=== PATIENT | female | born 1925 | race Caucasian/White ===

== ENCOUNTER 2016-05-21 09:17 | Outpatient (RCR) | payer MEDICARE ==
[~2016-05-21 09:17] MED LIST: AC500T PO; ACHD5005 PO; AMLO5TAB2 PO; ASP81TEC PO; ATRV10T PO; CA C1TAB26 PO; CALC-80 PO; CEFU250T11 PO; DABI75CA3 PO; DONE10TA5 PO; DONE5TAB4 PO; ISOS30TA3 PO; LVT.05T PO; METO-351 PO; MTP25TSR PO; MULT-1029 PO; NITR0.4T SL; OMG1KC PO; ONDN4T PO; PANT40TA PO; PANT40TA2 PO; PNT40TEC PO; POLY17PO23 PO; PRV20T PO; SUCR1ORA5 PO; TRM50T PO; bp PO
[2016-05-21 09:29] LABS: BASOPHILS # (AUTO) 0.1 10^3/uL (0.0-0.1); BASOPHILS % (AUTO) 1 % (0-10); EOSINOPHILS # (AUTO) 0.4 10^3/uL (0.0-0.3); EOSINOPHILS % (AUTO) 5 % (0-10); LYMPHOCYTES # (AUTO) 1.3 X 10^3 (1.0-4.0); LYMPHOCYTES % (AUTO) 19 % (12-44); MEAN CORPUSCULAR HEMOGLOBIN 31 PG (25-34); MEAN CORPUSCULAR HGB CONC 32 G/DL (32-36); MEAN CORPUSCULAR VOLUME 96 FL (80-99); MEAN PLATELET VOLUME 9.6 FL (7.4-10.4); MONOCYTES # (AUTO) 0.8 X 10^3 (0.0-1.0); MONOCYTES % (AUTO) 12 % (0-12); NEUTROPHILS # (AUTO) 4.4 X 10^3 (1.8-7.8); NEUTROPHILS % (AUTO) 64 % (42-75); PLATELET COUNT 144 10^3/uL (130-400); RED BLOOD COUNT 4.12 10^6/uL (4.35-5.85); RED CELL DISTRIBUTION WIDTH 13.2 % (10.0-14.5)
[2016-05-21 10:07] LABS: BILIRUBIN,TOTAL 0.5 MG/DL (0.1-1.0); CALCIUM 8.9 MG/DL (8.5-10.1); CREATININE SERUM 1.96 MG/DL (0.60-1.30); POTASSIUM 4.2 MMOL/L (3.6-5.0); TOTAL PROTEIN 6.4 G/DL (6.4-8.2)
[2016-08-20] MEDS ORDERED: DENOSUMAB 60 MG/1 ML (PROLIA) CANCER CTR SQ SCH (10:00)
== END 2016-08-19 | disposition home or self-care (01) ==
LOC: ONC 09:17
PROVIDERS: ATTEND Internal Medicine Hematology & Oncology
DX: C50.911 Malignant neoplasm of unspecified site of right female breast (principal); M81.0 Age-related osteoporosis without current pathological fracture; N18.4 Chronic kidney disease, stage 4 (severe); Z17.1 Estrogen receptor negative status [ER-]; Z92.3 Personal history of irradiation; Z79.899 Other long term (current) drug therapy
CPT/HCPCS: 36415; 80053; 85025; 99213

== ENCOUNTER 2016-08-20 08:57 | Outpatient (RCR) | payer MEDICARE ==
--- OUTSIDE RECORDS SUMMARY | 2016-08-20 09:01 | XMS REPORT | Continuity of Care Document ---
Author Author [facility] Organization [facility] Address Unknown Phone Unavailable Care Team Providers Care Press Setter Name Role Phone ELEUTERIO CARMONA MD PCP Insurance Providers Payer Name Policy Number Subscriber Name Relationship Wps Medicare [id number] Marsha Paul 18 Self / Same As Patient Blue Cross [facility] Supp [id number] UrmilaMarsha venegas I 18 Self / Same As Patient Advance Directives Directive Response Recorded Date/Time Advance Directives Yes 02/11/16 10:06am Health Care Power of Controls Operator Molded Goods No 02/11/16 10:06am Organ Donor No 02/11/16 10:06am Problems Active Problems Medical Problem Onset Date Status CRF (chronic renal failure) Unknown Acute Closed head injury Unknown Acute Constipation Unknown Acute Contusion, wrist Unknown Acute Diffuse abdominal pain Unknown Acute Fall Unknown Acute Syncope Unknown Acute Syncope Unknown Acute Medications Current Home Medications Medication Dose Units Route Directions Days/Qty Instructions Start Date Aspirin 81 Mg 81 Mg Oral Daily 09/11/11 Dabigatran Etexilate Mesylate 75 Mg 75 Mg Oral Twice A Day 10/05/12 Levothyroxine Sodium (Levothroid) 50 Mcg 50 Mcg Oral Daily 01/01/14 Nitroglycerin 0.4 Mg 0.4 Mg Sublingual As Directed as needed for Chest Pain PLACE 1 TABLET UNDER TONGUE EVERY 5 MINUTES X 3 DOSES NEEDED FOR CEHST PAIN 11/06/14 Metoprolol Succinate 25 Mg 25 Mg Oral Daily 11/06/14 Donepezil Hcl 10 Mg 10 Mg Oral Daily 11/06/14 Cefuroxime Axetil (Ceftin) 250 Mg 250 Mg Oral Twice A Day 10 11/07/14 Pantoprazole Sodium 40 Mg 40 Mg Oral Daily 90 02/11/16 Sucralfate 1 Gm/10 Ml 1 Gm Oral Four Times Daily 100 02/11/16 Past Home Medications Medication Directions Ordered Status [Bp] , 5 Mg Oral Daily 09/11/11 Discontinued Amlodipine Besylate (Norvasc 5 Mg) 5 Mg Tablet, 5 Mg Oral Daily 09/11/11 Discontinued Fish Oil 1,000 Mg Cap, 1000 Mg Oral Three Times A Day 09/11/11 Discontinued Atorvastatin Calcium 10 Mg Tablet, 1 Each Oral Daily 09/11/11 Discontinued Acetaminophen 500 Mg Tablet, 1000 Mg Oral Every 8HRS as needed 09/11/11 Discontinued Tramadol Hcl 50 Mg Tab, 50 Mg Oral Every 8HRS as needed 09/15/11 Discontinued Ondansetron Hcl 4 Mg Tab, 4 Mg Oral Every 8HRS as needed 09/15/11 Discontinued Polyethylene Glycol 17 Gm Pack, 17 Gm Oral Daily as needed 09/15/11 Discontinued Mu-Vits-Min Th/Lycopene/Lutein 1 Each Tablet, 1 Each Oral Daily 10/02/12 Discontinued Metoprolol Succinate 25 Mg Tab.sr.24h, 25 Mg Oral Daily 10/05/12 Discontinued Pravastatin Sodium 20 Mg Tablet, 20 Mg Oral Daily 10/05/12 Discontinued Donepezil Hcl 5 Mg Tab, 10 Mg Oral Daily 01/01/14 Discontinued Isosorbide Mononitrate (Imdur) 30 Mg Tab.sr.24h, 30 Mg Oral Daily 01/01/14 Discontinued Calcium Carbonate/Vitamin D3 1 Each Tablet, 1 Tab Oral Daily 01/01/14 Discontinued Ca Cmb No.1/Vit D3/B-6/Fa/B12 1 Each Tablet, 1000 Units Oral Daily 01/01/14 Discontinued Acetaminophen/Hydrocodone Bitart 1 Tab Tab, 1-2 Tab Oral Every 6 Hours for Pain 01/04/14 Discontinued Donepezil Hcl 5 Mg Tab, 10 Mg Oral Daily 08/07/14 Discontinued Pantoprazole Sod 40 Mg Tab, 40 Mg Oral Daily 08/07/14 Discontinued Social History Social History Problem Response Recorded Date/Time Alcohol Use Denies Use 01/02/2016 5:42pm Recreational Drug Use No 01/02/2016 5:42pm Recent Foreign Travel No 10/02/2012 6:25pm Recent Infectious Disease Exposure No 10/02/2012 6:25pm Hospitalization with Isolation Denies 10/05/2012 4:48pm Do you dip or chew tobacco? No 08/25/2015 10:30am Recent Hopitalizations No 01/02/2016 5:42pm Hospitalization with Isolation Denies 10/05/2012 4:48pm Hospital Discharge Instructions No hospital discharge instructions. Plan of Care Prescriptions See Medication Section Functional Status No functional status results. Allergies, Adverse Reactions, Alerts No known allergies. Immunizations No immunization records. Vital Signs No known vital signs results. Results Laboratory Results Test Name Result Units Flags Reference Collection Date/Time Result Date/ Time Comments White Blood Count 7.0 10^3/uL 4.3-11.0 05/21/2016 9:am 05/21/2016 9: 31am Red Blood Count 4.12 10^6/uL L 4.35-5.85 05/21/2016 9:05/21/2016 9: 31am Hemoglobin 12.8 G/DL 11.5-16.0 05/21/2016 9:05/21/2016 9:31am Hematocrit 40 % 35-52 05/21/2016 9:05/21/2016 9:31am Mean Corpuscular Volume 96 FL 80-99 05/21/2016 9:05/21/2016 9: 31am Mean Corpuscular Hemoglobin 31 PG 25-34 05/21/2016 9:05/21/2016 9: 31am Mean Corpuscular Hemoglobin Concent 32 G/DL 32-36 05/21/2016 9:01/2016 9:31am Red Cell Distribution Width 13.2 % 10.0-14.5 05/21/2016 9:2015 9:31am Platelet Count 144 10^3/uL 130-400 05/21/2016 9:05/21/2016 9:31am Mean Platelet Volume 9.6 FL 7.4-10.4 05/21/2016 9:05/21/2016 9: 31am Neutrophils (%) (Auto) 64 % 42-75 05/21/2016 9:05/21/2016 9:31am Lymphocytes (%) (Auto) 19 % 12-44 05/21/2016 9:05/21/2016 9:31am Monocytes (%) (Auto) 12 % 0-12 05/21/2016 9:05/21/2016 9:31am Eosinophils (%) (Auto) 5 % 0-10 05/21/2016 9:05/21/2016 9:31am Basophils (%) (Auto) 1 % 0-10 05/21/2016 9:05/21/2016 9:31am Neutrophils # (Auto) 4.4 X 10^3 1.8-7.8 05/21/2016 9:05/21/2016 9: 31am Lymphocytes # (Auto) 1.3 X 10^3 1.0-4.0 05/21/2016 9:05/21/2016 9: 31am Monocytes # (Auto) 0.8 X 10^3 0.0-1.0 05/21/2016 9:05/21/2016 9: 31am Eosinophils # (Auto) 0.4 10^3/uL H 0.0-0.3 05/21/2016 9:05/21/2016 9 :31am Basophils # (Auto) 0.1 10^3/uL 0.0-0.1 05/21/2016 9:05/21/2016 9: 31am Sodium Level 143 MMOL/L 135-145 05/21/2016 9:05/21/2016 10:11am Potassium Level 4.2 MMOL/L 3.6-5.0 05/21/2016 9:05/21/2016 10: 11am Chloride Level 108 MMOL/L H 98-107 05/21/2016 9:05/21/2016 10:11am Carbon Dioxide Level 24 MMOL/L 21-32 05/21/2016 9:05/21/2016 10: 11am Anion Gap 11 MMOL/L 5-14 05/21/2016 9:05/21/2016 10:11am Blood Urea Nitrogen 20 MG/DL H 7-18 05/21/2016 9:05/21/2016 10:11am Creatinine 1.96 MG/DL H 0.60-1.30 05/21/2016 9:05/21/2016 10:11am BUN/Creatinine Ratio 10 05/21/2016 9:05/21/2016 10:11am Estimat Glomerular Filtration Rate 24 05/21/2016 9:05/21/2016 10:11am GFR INTERPRETIVE DATA UNITS FOR ESTIMATED GFR (eGFR): mL/min/1.73 M2 REFERENCE RANGE FOR ESTIMATED GFR (eGFR) eGFR NORMAL eGFR >60 MODERATELY DECREASED eGFR 30-59 SEVERLY DECREASED eGFR 15-29 KIDNEY FAILURE <15 (OR DIALYSIS) Glucose Level 96 MG/DL 70-105 05/21/2016 9:05/21/2016 10:11am Calcium Level 8.9 MG/DL 8.5-10.1 05/21/2016 9:05/21/2016 10:11am Total Bilirubin 0.5 MG/DL 0.1-1.0 05/21/2016 9:05/21/2016 10:11am Alkaline Phosphatase 82 U/L 40-136 05/21/2016 9:05/21/2016 10: 11am Aspartate Amino Transf (AST/SGOT) 24 U/L 5-34 05/21/2016 9:2015 10:11am Alanine Aminotransferase (ALT/SGPT) 16 U/L 0-55 05/21/2016 9:05/21 10:11am Total Protein 6.4 G/DL 6.4-8.2 05/21/2016 9:05/21/2016 10:11am Albumin 4.0 G/DL 3.2-4.5 05/21/2016 9:05/21/2016 10:11am Procedures No known history of procedures. Encounters Encounter Location Arrival/Admit Date Discharge/Depart Date Attending Provider Discharged Recurring [facility] 05/21/16 9:17am 11:59pm DELPHINE ZHANG
[2016-08-20 09:22] LABS: BASOPHILS % (AUTO) 0 % (0-10); EOSINOPHILS # (AUTO) 0.3 10^3/uL (0.0-0.3); EOSINOPHILS % (AUTO) 4 % (0-10); LYMPHOCYTES # (AUTO) 1.2 X 10^3 (1.0-4.0); LYMPHOCYTES % (AUTO) 18 % (12-44); MEAN CORPUSCULAR HEMOGLOBIN 30 PG (25-34); MEAN CORPUSCULAR HGB CONC 33 G/DL (32-36); MEAN CORPUSCULAR VOLUME 90 FL (80-99); MEAN PLATELET VOLUME 9.4 FL (7.4-10.4); MONOCYTES # (AUTO) 0.6 X 10^3 (0.0-1.0); MONOCYTES % (AUTO) 9 % (0-12); NEUTROPHILS # (AUTO) 4.6 X 10^3 (1.8-7.8); NEUTROPHILS % (AUTO) 69 % (42-75); PLATELET COUNT 122 10^3/uL (130-400); RED BLOOD COUNT 4.64 10^6/uL (4.35-5.85); RED CELL DISTRIBUTION WIDTH 13.3 % (10.0-14.5); WHITE BLOOD COUNT 6.7 10^3/uL (4.3-11.0)
[2016-08-20 10:07] LABS: ALBUMIN 3.9 G/DL (3.2-4.5); BILIRUBIN,TOTAL 0.4 MG/DL (0.1-1.0); CALCIUM 9.3 MG/DL (8.5-10.1); CREATININE SERUM 2.24 MG/DL (0.60-1.30); POTASSIUM 4.4 MMOL/L (3.6-5.0); TOTAL PROTEIN 6.5 G/DL (6.4-8.2)
== END 2016-11-18 | disposition home or self-care (01) ==
LOC: ONC 08:57
PROVIDERS: ATTEND Internal Medicine Hematology & Oncology
DX: C50.911 Malignant neoplasm of unspecified site of right female breast (principal); M81.0 Age-related osteoporosis without current pathological fracture; N18.4 Chronic kidney disease, stage 4 (severe); Z17.1 Estrogen receptor negative status [ER-]; Z92.3 Personal history of irradiation; Z79.899 Other long term (current) drug therapy
CPT/HCPCS: 36415; 80053; 82306; 85025; 96372; 99213

== ENCOUNTER 2016-10-16 12:38 | Emergency (ER) | payer MEDICARE ==
[~2016-10-16] VITALS: Ht 154.9 cm; Wt 54.4 kg
--- NOTE | 2016-10-16 13:03 | ED General ---
General Chief Complaint: General Problems/Pain Stated Complaint: WEAKNESS Nursing Triage Note: to ED 10 with family with reports of generalized weakness, worsening yesterday, as well as intermittent chest pain Nursing Sepsis Screen: No Definite Risk Source of Information: Patient, Family Exam Limitations: No Limitations History of Present Illness Time Seen by Provider: 12:46 Initial Comments Here with report of weakness, chills and overall not feeling well for the past several days and worsening yesterday. Family brought her to her sales assistants and salespersons today for evaluation. The cardiac evaluation there didn't find anything significant or specific and the sales assistants and salespersons was concerned about the weakness and chills as a presentation for sepsis. The sales assistants and salespersons called here and ultimately sent patient here for further evaluation. Patient and family agree. Family reports the patient has had frequency of urination but no cough or fever noted. Patient definitely has had chills and fevers. She has had no vomiting or diarrhea. Timing/Duration: 1 Week, Getting Worse Severity: Moderate Associated Systoms: No Cough, Fever/Chills, No Nausea/Vomiting, No Shortness of Air, Weakness Allergies and Home Medications Allergies Coded Allergies: No Known Drug Allergies (Verified , 02/11/16) Home Medications Aspirin 81 Mg Tabec, 81 MG PO DAILY, (Reported) Cefuroxime Axetil 250 Mg Tablet, 250 MG PO BID, #10 Ref 0 Prescribed by: GEMA REY on 11/07/14 0910 Dabigatran Etexilate Mesylate 75 Mg Capsule, 75 MG PO BID, (Reported) Donepezil HCl 10 Mg Tablet, 10 MG PO DAILY, (Reported) Levothyroxine Sodium 50 Mcg Tablet, 50 MCG PO DAILY, (Reported) Metoprolol Succinate 25 Mg Tab, 25 MG PO DAILY, (Reported) Nitroglycerin 0.4 Mg Tab.subl, 0.4 MG SL UD PRN for CHEST PAIN, (Reported) PLACE 1 TABLET UNDER TONGUE EVERY 5 MINUTES X 3 DOSES NEEDED FOR CEHST PAIN Pantoprazole Sodium 40 Mg Tablet.dr, 40 MG PO DAILY, #90 Ref 3 Prescribed by: SAHRA LANDA on 02/11/16 1135 Sucralfate 1 Gm/10 Ml Oral.susp, 1 GM PO QID, #100 Prescribed by: SAHRA LANDA on 02/11/16 1135 Constitutional: see HPI EENTM: no symptoms reported Respiratory: no symptoms reported, No cough, No short of breath Cardiovascular: No edema, palpitations Gastrointestinal: No nausea, No vomiting Genitourinary: see HPI, frequency, No pain Musculoskeletal: No muscle pain, muscle weakness Skin: no symptoms reported Psychiatric/Neurological: Denies Headache, Weakness Hematologic/Lymphatic: No Symptoms Reported All Other Systems Reviewed Negative Unless Noted: Yes Past Iirczoi-Nbupqt-Xurgoj Hx Patient Social History Alcohol Use: Denies Use Recreational Drug Use: No Recent Foreign Travel: No Contact w/Someone Who Travel: No Recent Infectious Disease Expo: No Recent Hopitalizations: No Immunizations Up To Date Tetanus Booster (TDap): Unknown PED Vaccines UTD: No Date of Influenza Vaccine: Apr 14, 2015 Seasonal Allergies Seasonal Allergies: No Surgeries HX Surgeries: Yes (colon resection 40 years ago, RIGHT BREAST LUMPECTOMY) Respiratory Hx Respiratory Disorders: No Cardiovascular Hx Cardiac Disorders: Yes (PACEMAKER) Cardiac Disorders: Hypertension Neurological Hx Neurological Disorders: No Reproductive System Hx Reproductive Disorders: No Genitourinary Hx Genitourinary Disorders: No Gastrointestinal Hx Gastrointestinal Disorders: Yes Musculoskeletal Hx Musculoskeletal Disorders: Yes (compression fracture after fall-was hospitalized August 2011.) Musculoskeletal Disorders: Osteoporosis, Arthritis, Fractures Endocrine Hx Endocrine Disorders: Yes Endocrine Disorders: Hypothyroidsim HEENT HX ENT Disorders: No Cancer Hx Cancer: Yes Cancer: Breast Psychosocial Hx Psychiatric Problems: No Integumentary HX Skin/Integumentary Disorder: No Blood Transfusions Hx Blood Disorders: No Adverse Reaction to a Blood Tr: No Reviewed Nursing Assessment Reviewed/Agree w Nursing PMH: Yes Family Medical History Significant Family History: No Pertinent Family Hx Physical Exam-Suspected Sepsis Physical Exam Vital Signs Vital Sign - Last 12Hours 10/16/16 12:43 Temp 98.1 Pulse 66 Resp 16 B/P (MAP) 219/99 Pulse Ox 98 O2 Delivery Room Air Capillary Refill : Less Than 3 Seconds Blood Pressure Mean: 139 General Appearance: No Apparent Distress, WD/WN HEENT: PERRL/EOMI, Pharynx Normal, Other (moderate bilateral nasal membranes congestion with erythema) Neck: Non Tender, Supple Respiratory: Lungs Clear, Normal Breath Sounds Cardiovascular: Regular Rate, Rhythm, No Murmur Gastrointestinal: Non Tender, Soft Back: Normal Inspection, No CVA Tenderness, No Vertebral Tenderness Extremity: Non Tender, No Calf Tenderness Neurologic/Psychiatric: Alert, Other (oriented to self and place but confused on time and events. At baseline per family.) Skin: normal color, warm/dry Focused Exam Lactic Acid Level Laboratory Tests Test 10/16/16 12:55 Lactic Acid Level 1.28 MMOL/L (0.50-2.00) Progress/Results/Core Measures Suspected Sepsis Recent Fever Within 48 Hours: No Infection Criteria Present: None New/Unexplained Altered Menta: No Sepsis Screen: No Definite Risk Sepsis Diagnosis: SIRS Temperature:98.1 Pulse: 66 Respiratory Rate: 16 Laboratory Tests 10/16/16 12:55: White Blood Count 7.2 Blood Pressure 219 /99 Mean: 139 Laboratory Tests 10/16/16 12:55: Creatinine 2.05H, INR Comment 1.0, Platelet Count 117L, Total Bilirubin 0.7 Results/Orders Lab Results Laboratory Tests Test 10/16/16 12:55 10/16/16 13:20 Range/Units White Blood Count 7.2 4.3-11.0 10^3/uL Red Blood Count 4.69 4.35-5.85 10^6/uL Hemoglobin 14.2 11.5-16.0 G/DL Hematocrit 42 35-52 % Mean Corpuscular Volume 90 80-99 FL Mean Corpuscular Hemoglobin 30 25-34 PG Mean Corpuscular Hemoglobin Concent 34 32-36 G/DL Red Cell Distribution Width 13.4 10.0-14.5 % Platelet Count 117 L 130-400 10^3/uL Mean Platelet Volume 9.4 7.4-10.4 FL Neutrophils (%) (Auto) 64 42-75 % Lymphocytes (%) (Auto) 23 12-44 % Monocytes (%) (Auto) 10 0-12 % Eosinophils (%) (Auto) 3 0-10 % Basophils (%) (Auto) 1 0-10 % Neutrophils # (Auto) 4.6 1.8-7.8 X 10^3 Lymphocytes # (Auto) 1.7 1.0-4.0 X 10^3 Monocytes # (Auto) 0.7 0.0-1.0 X 10^3 Eosinophils # (Auto) 0.2 0.0-0.3 10^3/uL Basophils # (Auto) 0.0 0.0-0.1 10^3/uL Prothrombin Time 12.5 12.2-14.7 SEC INR Comment 1.0 0.8-1.4 Activated Partial Thromboplast Time 25 24-35 SEC Sodium Level 142 135-145 MMOL/L Potassium Level 4.3 3.6-5.0 MMOL/L Chloride Level 105 98-107 MMOL/L Carbon Dioxide Level 25 21-32 MMOL/L Anion Gap 12 5-14 MMOL/L Blood Urea Nitrogen 21 H 7-18 MG/DL Creatinine 2.05 H 0.60-1.30 MG/DL Estimat Glomerular Filtration Rate 23 BUN/Creatinine Ratio 10 Glucose Level 90 70-105 MG/DL Lactic Acid Level 1.28 0.50-2.00 MMOL/L Calcium Level 9.6 8.5-10.1 MG/DL Total Bilirubin 0.7 0.1-1.0 MG/DL Aspartate Amino Transf (AST/SGOT) 27 5-34 U/L Alanine Aminotransferase (ALT/SGPT) 21 0-55 U/L Alkaline Phosphatase 66 40-136 U/L Troponin I < 0.30 <0.30 NG/ML Total Protein 6.8 6.4-8.2 G/DL Albumin 4.2 3.2-4.5 G/DL Thyroid Stimulating Hormone (TSH) 1.99 0.35-4.94 UIU/ML Urine Color YELLOW Urine Clarity CLEAR Urine pH 8 5-9 Urine Specific Hooper 1.010 L 1.016-1.022 Urine Protein NEGATIVE NEGATIVE Urine Glucose (UA) NEGATIVE NEGATIVE Urine Ketones NEGATIVE NEGATIVE Urine Nitrite NEGATIVE NEGATIVE Urine Bilirubin NEGATIVE NEGATIVE Urine Urobilinogen NORMAL NORMAL MG/DL Urine Leukocyte Esterase NEGATIVE NEGATIVE Urine RBC (Auto) NEGATIVE NEGATIVE Urine RBC RARE /HPF Urine WBC NONE /HPF Urine Crystals NONE /LPF Urine Bacteria NEGATIVE /HPF Urine Casts NONE /LPF Urine Mucus NEGATIVE /LPF Urine Culture Indicated NO My Orders Orders - DANA LOPEZ MD Cbc With Automated Diff (10/16/16 12:45) Comprehensive Metabolic Panel (10/16/16 12:45) Lactic Acid Analyzer (10/16/16 12:45) Blood Culture (10/16/16 12:45) Sputum Culture (10/16/16 12:45) Ua Culture If Indicated (10/16/16 12:45) Protime With Inr (10/16/16 12:45) Partial Thromboplastin Time (10/16/16 12:45) Chest 1 View, Ap/Pa Only (10/16/16 12:45) O2 (10/16/16 12:45) Saline Lock/Iv-Start (10/16/16 12:45) Saline Lock/Iv-Start (10/16/16 12:45) Vital Signs Adult Sepsis Patie Q1HR (10/16/16 12:45) Remove Rings In Anticipation O (10/16/16 12:45) Thyroid Stimulating Hormone (10/16/16 12:54) Troponin I (10/16/16 12:54) Ekg Tracing (10/16/16 12:54) Ns Iv 500 Ml (Sodium Chloride 0.9%) (10/16/16 13:44) Ns Iv 500 Ml (Sodium Chloride 0.9%) (10/16/16 13:42) Ct Head Wo (10/16/16 13:49) Medications Given in ED Current Medications Medications Dose Ordered Sig/Bhumi Route Start Time Stop Time Status Last Admin Dose Admin Sodium Chloride 500 ml @ 0 mls/hr Q0M ONCE IV 10/16/16 13:44 10/16/16 13:45 DC 10/16/16 13:48 0 MLS/HR Vital Signs/I&O Vital Sign - Last 12Hours 10/16/16 10/16/16 12:43 13:00 Temp 98.1 Pulse 66 Resp 16 B/P (MAP) 219/99 Pulse Ox 98 98 O2 Delivery Room Air Room Air Capillary Refill : Less Than 3 Seconds Blood Pressure Mean: 139 Progress Note : Progress Note Seen and evaluated. Sepsis workup initiated due to shaking and chills. IV, labs, EKG, chest x-ray, UA, blood cultures and lactic acid ordered. No acute findings noted with respect to the aforementioned evaluation. CT head ordered due to nasal congestion and concerns for possible early sinusitis as a cause of the condition. 1450: CT negative. Overall patient feels a little better after normal saline 500 mL bolus and reassurance after reviewing evaluation. Discharged home with return precautions. Patient verbalize understanding instructions and agreement with plan. ECG Initial ECG Impression Date: October 16, 2016 Initial ECG Impression Time: 12:48 Initial ECG Rate: 65 Initial ECG Rhythm: Normal Sinus Comment Sinus rhythm with normal axis. No evidence of ST elevation ID. No previous available for comparison. Interpreted by me. Diagnostic Imaging Diagonstic Imaging: Xray Plain Films/CT/US/NM/MRI: chest [facility] [place], [place] NAME: MARSHA PAUL [facility] REC#: [id number] PT STATUS: REG ER : 1925 PHYSICIAN: DANA LOPEZ MD ADMIT DATE: 10/16/16/ER Draft Date of Exam:10/16/16 CHEST 1 VIEW, AP/PA ONLY INDICATION: Weakness. Comparison with CT chest 11/12/2015. FINDINGS: The lungs are well aerated. Calcified granulomas are noted bilaterally. Largest in right upper lobe. Bilateral apical pleural scarring is present. There is some scarring noted along the lingula near the cardiac apex. No acute infiltrates have developed. Mild air trapping is noted. The heart is mildly enlarged. Pacemaker present. No evidence of pulmonary edema. IMPRESSION: 1. Bilateral granulomatous disease unchanged. 2. Mild cardiomegaly without evidence of congestive failure. 3. Mild scarring along the left cardiac apex. Dictated on workstation # [id number] Dict: 10/16/16 1314 Trans: 10/16/16 1318 [facility] [id number] Interpreted by: HARSHA RODRIGUEZ MD Electronically signed by: Diagonstic Imaging: CT Plain Films/CT/US/NM/MRI: head Comments [facility]. [place], [place] NAME: MARSHA PAUL [facility] REC#: [id number] PT STATUS: REG ER : 1925 PHYSICIAN: DANA LOPEZ MD ADMIT DATE: 10/16/16/ER Draft Date of Exam:10/16/16 CT HEAD WO INDICATION: Weakness. History of breast cancer. TECHNIQUE: Routine non contrast-enhanced axial images were obtained from the skull base to the vertex. COMPARISON: 08/25/2015. FINDINGS: The ventricles and cortical sulci are diffusely prominent, compatible with age-related volume loss. There are confluent areas of abnormal, low attenuation in the periventricular white matter. This is consistent with chronic small vessel ischemic changes. There is no midline shift or mass-effect. No acute intra-axial hemorrhage is seen. There are no abnormal areas of increased or decreased density to suggest acute hemorrhage or edema. No extra-axial masses or collections are present. The bony calvarium is intact. The visualized paranasal sinuses are unremarkable. The mastoid air cells are clear. IMPRESSION: 1. No acute intracranial abnormality. No CT evidence of mass, acute infarct or intracranial hemorrhage. 2. Chronic small vessel ischemic changes in the deep white matter. Dictated on workstation # [id number] Dict: 10/16/16 1439 Trans: 10/16/16 1445 [id number] Interpreted by: CATE TAVERAS Electronically signed by: Departure Impression Impression: Primary Impression: Fatigue Qualified Codes: R53.83 - Other fatigue Additional Impression: Chills (without fever) Disposition: 01 HOME, SELF-CARE Condition: Improved Departure-Patient Inst. Decision time for Depature: 14:59 Referrals: ELEUTERIO CARMONA MD (PCP/Family) Primary Care Physician Patient Instructions: Fatigue (DC) Add. Discharge Instructions: All discharge instructions reviewed with patient and/or family. Voiced understanding. Continue home medications as directed. Eat a normal diet and drink and adequate amount of fluid as discussed. Follow up with your DrAriadne in a few days for recheck. Return for worse pain, fever, vomiting, weakness, breathing problems or other concerns as needed. DANA LOPEZ MD October 16, 2016 13:03
[2016-10-16 13:13] LABS: BASOPHILS % (AUTO) 1 % (0-10); EOSINOPHILS # (AUTO) 0.2 10^3/uL (0.0-0.3); EOSINOPHILS % (AUTO) 3 % (0-10); LYMPHOCYTES # (AUTO) 1.7 X 10^3 (1.0-4.0); LYMPHOCYTES % (AUTO) 23 % (12-44); MEAN CORPUSCULAR HEMOGLOBIN 30 PG (25-34); MEAN CORPUSCULAR HGB CONC 34 G/DL (32-36); MEAN CORPUSCULAR VOLUME 90 FL (80-99); MEAN PLATELET VOLUME 9.4 FL (7.4-10.4); MONOCYTES # (AUTO) 0.7 X 10^3 (0.0-1.0); MONOCYTES % (AUTO) 10 % (0-12); NEUTROPHILS # (AUTO) 4.6 X 10^3 (1.8-7.8); NEUTROPHILS % (AUTO) 64 % (42-75); PLATELET COUNT 117 10^3/uL (130-400); RED BLOOD COUNT 4.69 10^6/uL (4.35-5.85); RED CELL DISTRIBUTION WIDTH 13.4 % (10.0-14.5); WHITE BLOOD COUNT 7.2 10^3/uL (4.3-11.0)
--- NOTE | 2016-10-16 13:19 | Diagnostic Imaging Report ---
INDICATION: Weakness. Comparison with CT chest 11/12/2015. FINDINGS: The lungs are well aerated. Calcified granulomas are noted bilaterally. Largest in right upper lobe. Bilateral apical pleural scarring is present. There is some scarring noted along the lingula near the cardiac apex. No acute infiltrates have developed. Mild air trapping is noted. The heart is mildly enlarged. Pacemaker present. No evidence of pulmonary edema. IMPRESSION: 1. Bilateral granulomatous disease unchanged. 2. Mild cardiomegaly without evidence of congestive failure. 3. Mild scarring along the left cardiac apex. Dictated by: Dictated on workstation # [id number]
[2016-10-16 13:22] LABS: PROTHROMBIN TIME PATIENT 12.5 SEC (12.2-14.7)
[2016-10-16 13:33] LABS: BILIRUBIN,URINE NEGATIVE (NEGATIVE); KETONES,URINE NEGATIVE (NEGATIVE); LEUKOCYTE ESTERASE ,URINE NEGATIVE (NEGATIVE); NITRITE,URINE NEGATIVE (NEGATIVE); PH,URINE 8 (5-9); PROTEIN,URINE NEGATIVE (NEGATIVE); UROBILINOGEN,URINE NORMAL (NORMAL)
[2016-10-16 13:33] LABS: ALANINE AMINOTRANSFERASE 21 U/L (0-55); ALBUMIN 4.2 G/DL (3.2-4.5); ANION GAP 12 MMOL/L (5-14); ASPARTATE AMINO TRANSFERASE 27 U/L (5-34); BILIRUBIN,TOTAL 0.7 MG/DL (0.1-1.0); BLOOD UREA NITROGEN 21 MG/DL (7-18); BUN/CREATININE RATIO 10; CALCIUM 9.6 MG/DL (8.5-10.1); CARBON DIOXIDE 25 MMOL/L (21-32); CHLORIDE 105 MMOL/L (98-107); CREATININE SERUM 2.05 MG/DL (0.60-1.30); GFR ESTIMATED 23; GLUCOSE 90 MG/DL (70-105); POTASSIUM 4.3 MMOL/L (3.6-5.0); SODIUM 142 MMOL/L (135-145); TOTAL PROTEIN 6.8 G/DL (6.4-8.2)
[2016-10-16] MEDS ORDERED: NS IV 500 ML 500 ML ONE (13:42)
[2016-10-16] MEDS ORDERED: NS IV 500 ML 500 ML IV ONE (13:44)
[2016-10-16 13:53] LABS: THYROID STIMULATING HORMONE 1.99 UIU/ML (0.35-4.94); TROPONIN I < 0.30 NG/ML (<0.30)
--- NOTE | 2016-10-16 14:46 | Diagnostic Imaging Report ---
INDICATION: Weakness. History of breast cancer. TECHNIQUE: Routine non contrast-enhanced axial images were obtained from the skull base to the vertex. COMPARISON: 08/25/2015. FINDINGS: The ventricles and cortical sulci are diffusely prominent, compatible with age-related volume loss. There are confluent areas of abnormal, low attenuation in the periventricular white matter. This is consistent with chronic small vessel ischemic changes. There is no midline shift or mass-effect. No acute intra-axial hemorrhage is seen. There are no abnormal areas of increased or decreased density to suggest acute hemorrhage or edema. No extra-axial masses or collections are present. The bony calvarium is intact. The visualized paranasal sinuses are unremarkable. The mastoid air cells are clear. IMPRESSION: 1. No acute intracranial abnormality. No CT evidence of mass, acute infarct or intracranial hemorrhage. 2. Chronic small vessel ischemic changes in the deep white matter. Dictated by: Dictated on workstation # [id number]
[2016-10-16 15:06] VITALS: BP 176/66
== END 2016-10-16 15:06 | disposition home or self-care (01) ==
LOC: EDUNIT# 12:38 → ER 12:40
DX: R53.83 Other fatigue (principal); J98.4 Other disorders of lung; I10 Essential (primary) hypertension; Z79.82 Long term (current) use of aspirin; Z79.899 Other long term (current) drug therapy; Z95.0 Presence of cardiac pacemaker
CPT/HCPCS: 36415; 51701; 70450; 71010; 80053; 81000; 83605; 84443; 84484; 85025; 85610; 85730; 87040; 93005; 96360